=== PATIENT | male | born 1980 | race Caucasian/White ===

== ENCOUNTER 2017-05-06 12:38 | Emergency (ER) | payer OTHER ==
[~2017-05-06] VITALS: Ht 188 cm; Wt 127.3 kg
[2017-05-06] MEDS ORDERED: NAPR250T2 PO (13:10)
[2017-05-06] MEDS ORDERED: IBUPROFEN 800 MG TABLET PO ONE (14:00)
[2017-05-06] MEDS ORDERED: HYDROCODONE/ACETAMINOPHEN 5-325 MG TABLET PO ONE (14:00)
[2017-05-06 15:37] VITALS: BP 132/77
== END 2017-05-06 15:40 | disposition home or self-care (01) ==
LOC: EMS 12:39
DX: M25.562 Pain in left knee (principal)
CPT/HCPCS: 29505; 99284